=== PATIENT | male | born 1995 | race Caucasian/White ===

== ENCOUNTER → 2016-07-20 | Outpatient (CLI) | payer OTHER ==
[~2016-07-20] MED LIST: CETI10TA84 PO; CMD5 PO; ENOX120I SQ; LVNIS150 SQ; WARF5TAB7 PO; [UNRECOGNIZED DRUG - CODE] SC
--- NOTE | 2016-07-20 10:21 | DIAGNOSTIC IMAGING REPORT ---
LEFT LOWER EXTREMITY VENOUS DOPPLER HISTORY: LT LEG DVT, F/U STUDY COMPARISON STUDY: Left leg venous Doppler 01/07/2016. FINDINGS: There is occlusive thrombus seen within the left peroneal veins, unchanged. There is also occlusive thrombus seen within one of 2 posterior tibial veins. This is new from the prior study. No DVT identified within the left common femoral, superficial femoral, popliteal, anterior tibial veins. IMPRESSION: 1. No change in the left peroneal vein thrombosis. 2. There is now occlusive thrombus seen within one of 2 posterior tibial veins. Electronically signed by: Anatoly Reid M.D. 07/20/2016 10:20 AM Dictated Date/Time: 07/20/2016 10:18 AM
== END | disposition home or self-care (01) ==
LOC: C.ULTR 09:42
PROVIDERS: ATTEND Internal Medicine Hematology & Oncology
DX: I82.402 Acute embolism and thrombosis of unspecified deep veins of left lower extremity (principal)

== ENCOUNTER 2016-08-06 21:24 | Emergency (ER) | payer OTHER ==
[~2016-08-06] VITALS: Ht 180.3 cm; Wt 135.1 kg
[~2016-08-06 21:24] MED LIST changes: -CETI10TA84 PO; -LVNIS150 SQ; -WARF5TAB7 PO; -[UNRECOGNIZED DRUG - CODE] SC
[2016-08-06 21:27] VITALS: TEMP 37; Ht 180.3 cm; Wt 135.1 kg
[2016-08-06] MEDS ORDERED: CETI10TA84 PO (21:44)
[2016-08-06] MEDS ORDERED: [UNRECOGNIZED DRUG - CODE] SC (21:51)
--- NOTE | 2016-08-06 21:59 | EMERGENCY ROOM VISIT NOTE ---
History Report prepared by Julio: Nakita Kendrick Under the Supervision of: Dr. Mj Flores M.D. First contact with patient: 21:29 Chief Complaint: SHORTNESS OF BREATH Stated Complaint: SOB History of Present Illness The patient is a 20 year old male who presents to the Emergency Room with constant back pain starting 40 minutes [employer]. The patient states that the pain feels as if he has knot behind his shoulder blade. The patient states that along with the pain he felt as if his breathing was heavy. The patient states that in January he was diagnosed with a DVT of the left leg and was put on Eliquis for the last 6 months. The patient states that 2 weeks ago he had an examination on his left leg again and 2 additional DVT clots were found. The patient states that he was put on Coumadin which was supposed to start tomorrow and he has been injecting himself with shots of Lovenox for the last 5 days. The patient states that his doctor told him to be seen at the ED if he was having any chest pain, back pain or shortness of breath. The patient denies any diaphoresis or chest pain. The patient states that he has a genetic disposition for blood clots. He denies any kidney disease, heart disease, or diabetes. Source of History: patient Onset: 40 minutes [employer] Position: back Quality: other (knot) Timing: constant Associated Symptoms: No diaphoresis, No chest pain Note: Associated symptoms: heavy breathing Review of Systems See HPI for pertinent positives & negatives. A total of 10 systems reviewed and were otherwise negative. Past Medical & Surgical Medical Problems: (1) DVT (deep venous thrombosis) Family History Patient reports no known family medical history. Social History Smoking Status: Never Smoker Marital Status: single Housing Status: lives with family Occupation Status: student Current/Historical Medications Scheduled Cetirizine (Zyrtec), 10 MG PO DAILY Fondaparinux Sodium (Arixtra), 10 MG SC DAILY Allergies Coded Allergies: No Known Allergies (Unverified , 01/07/16) Physical Exam Vital Signs Date Time Temp Pulse Resp B/P (MAP) Pulse Ox O2 Delivery O2 Flow Rate FiO2 08/06/16 23:22 89 18 137/89 98 Room Air 08/06/16 22:03 97 Room Air 08/06/16 21:27 37.0 103 18 132/73 99 Room Air Physical Exam GENERAL: Patient is in no acute distress. HEENT: No acute trauma, normocephalic atraumatic, mucous membranes moist, no nasal congestion, no scleral icterus. NECK: No stridor, no adenopathy, no meningismus, trachea is midline. LUNGS: Clear to auscultation bilaterally, no wheeze, no rhonchi, breath sounds equal. HEART: Subtle systolic murmur and a mild tachycardia with a regular rhythm. ABDOMEN: Soft, nontender, bowel sounds positive, no hernias, no peritonitis. EXTREMITIES: No cyanosis or edema, full range of motion of all the joints without pain or difficulty, no signs for acute trauma. NEUROLOGIC: Oriented x 3, no acute motor or sensory deficits, no focal weakness. SKIN: No rash, no jaundice, no diaphoresis. Medical Decision & Procedures ER Provider Diagnostic Interpretation: CT results as stated below per my review and radiologist interpretation: Preliminary findings only--See Final Report for Complete Findings: CTA CHEST: No priors There is some artifact with limits evaluation. There are some areas of decreased attenuation in the pulmonary arteries which is felt to be artifactual. No evidence for acute PE allowing for artifact. Atelectasis. Trace pericardial effusion. Splenomegaly, gynecomastia and other incidentals. Radiologist: Francisco Nicholson M.D Study ready at 2307 and initial results transmitted at 2320 Laboratory Results 08/06/16 21:57 08/06/16 21:57 Test 08/06/16 21:57 Red Blood Count 4.96 M/uL (4.7-6.1) Mean Corpuscular Volume 86.7 fL (80-100) Mean Corpuscular Hemoglobin 29.4 pg (25-34) Mean Corpuscular Hemoglobin Concent 34.0 g/dl (32-36) RDW Standard Deviation 40.3 fL (36.4-46.3) RDW Coefficient of Variation 12.7 % (11.5-14.5) Mean Platelet Volume 9.1 fL (7.4-10.4) Prothrombin Time 11.2 SECONDS (9.0-12.0) Prothromb Time International Ratio 1.0 (0.9-1.1) Activated Partial Thromboplast Time 28.2 SECONDS (21.0-31.0) Partial Thromboplastin Ratio 1.1 Anion Gap 8.0 mmol/L (3-11) Est Creatinine Clear Calc Drug Dose 147.8 ml/min Estimated GFR () 109.9 Estimated GFR (Non- 94.8 BUN/Creatinine Ratio 18.9 (10-20) Calcium Level 9.4 mg/dl (8.5-10.1) Laboratory results reviewed by me. ECG Indication: back/shoulder pain Rate (beats per minute): 84 Rhythm: normal sinus Findings: no acute ischemic change, no ectopy ED Course 2129: The patient was evaluated in room B9. A complete history and physical exam was performed. 234: I reevaluated the patient. Discussed results and discharge instructions: He verbalized understanding and agreement. The patient is ready for discharge. Medical Decision The patient is a 20 year old male who presents to the ED with complaints of shortness of breath. Differential diagnoses considered include musculoskeletal pain, pneumonia, pneumothorax, AL and PE. There is no leukocytosis or concerning anemia. No significant electrolyte abnormality or kidney failure. There was no coagulopathy. EKG shows a normal sinus rhythm, no acute ischemia. Chest CT shows some artifact, no obvious PE, no pneumonia. The patient presents with concerns for PE, he is being treated for a DVT. Workup here does not show evidence for an acute pulmonary embolus. The patient was reassured. He is being discharged to continue his anticoagulation as prescribed, he can return for any worsening symptoms. The chest/back pain was likely musculoskeletal-the pain is already gone. Medication Reconciliation: I attest that I have personally reviewed the patient' s current medication list. Blood Pressure Screening: Patient was found to have an elevated blood pressure and was referred to their primary doctor for recheck and further treatment. Impression Primary Impression: Shortness of breath Additional Impression: DVT (deep venous thrombosis) Scribe Attestation The scribe's documentation has been prepared under my direction and personally reviewed by me in its entirety. I confirm that the note above accurately reflects all work, treatment, procedures, and medical decision making performed by me. Departure Information Dispostion Home / Self-Care Referrals Amarilis Garcia C.R.N.P (PCP) Forms HOME CARE DOCUMENTATION FORM, IMPORTANT VISIT INFORMATION Patient Instructions My [facility] Additional Instructions all meds as directed no clot on your scan today as per radiology ECG was ok return for worsening symptoms Problem Qualifiers
[2016-08-06 22:11] LABS: MEAN CELL VOLUME 86.7 fL (80-100); MEAN CORPUSCULAR HEMOGLOBIN 29.4 pg (25-34); MEAN PLATELET VOLUME 9.1 fL (7.4-10.4); PLATELET COUNT 214 K/uL (130-400); RED BLOOD COUNT 4.96 M/uL (4.7-6.1); WHITE BLOOD COUNT 5.69 K/uL (4.8-10.8)
[2016-08-06 22:18] LABS: PARTIAL THROMBOPLASTIN RATIO 1.1; PROTHROMBIN TIME (PATIENT) 11.2 SECONDS (9.0-12.0)
[2016-08-06 22:25] LABS: BUN/CREATININE RATIO 18.9 (10-20); CREATININE 1.1 mg/dl (0.60-1.40); POTASSIUM 3.8 mmol/L (3.5-5.1)
[2016-08-06 22:40] LABS: CALCIUM 9.4 mg/dl (8.5-10.1)
[2016-08-06] MEDS ORDERED: OPTIRAY 320 IV PRN (22:45)
[2016-08-06 23:22] VITALS: BP 137/89; PULSE 89; O2SAT 98
--- NOTE | 2016-08-07 06:42 | DIAGNOSTIC IMAGING REPORT ---
CT ANGIOGRAPHY OF THE CHEST, PULMONARY EMBOLUS PROTOCOL CLINICAL HISTORY: Right shoulder and chest pain. COMPARISON STUDY: No previous studies for comparison. TECHNIQUE: Following IV administration of 101 mL of [id number]-320, helical axial images of the chest were obtained utilizing the pulmonary embolus protocol. Maximal intensity projections and sagittal and coronal reformats were viewed on an independent 3D workstation. IV contrast was administered without complication. CT DOSE: 1465.90 mGy.cm FINDINGS: No pulmonary emboli are identified. There is no evidence of thoracic aortic dissection. Size of the heart is at the upper limits of normal. There is no pericardial effusion. No enlarged thoracic lymph nodes are present. There is no consolidation to suggest pneumonia. Linear and ground glass opacities reflect atelectasis. There is no pneumothorax or pleural effusion. Mild splenomegaly is similar to CT of April 02, 2015. There is gynecomastia. IMPRESSION: 1. No pulmonary emboli identified. 2. No acute intrathoracic findings. Electronically signed by: Darrell Sierra M.D. 08/07/2016 6:40 AM Dictated Date/Time: 08/07/2016 6:36 AM
[2016-08-07] MEDS ORDERED: LVNIS150 SQ (12:28)
[2016-09-13] MEDS ORDERED: WARF5TAB7 PO (11:33)
[2016-10-25] MEDS ORDERED: WARF5TAB7 PO (15:00)
== END 2016-08-06 23:54 | disposition home or self-care (01) ==
LOC: C.EDB 21:25
DX: R06.02 Shortness of breath (principal); I82.4Z2 Acute embolism and thrombosis of unspecified deep veins of left distal lower extremity; Z79.01 Long term (current) use of anticoagulants; Z79.899 Other long term (current) drug therapy

== ENCOUNTER → 2016-08-16 | Outpatient (CLI) | payer OTHER ==
[~2016-08-16] MED LIST changes: +CETI10TA84 PO; -CMD5 PO; -ENOX120I SQ; +LVNIS150 SQ; +WARF5TAB7 PO
[2016-08-16 12:15] LABS: HEMATOCRIT 43.1 % (42-52); MEAN CELL VOLUME 86.4 fL (80-100); MEAN CORPUSCULAR HEMOGLOBIN 29.9 pg (25-34); MEAN CORPUSCULAR HGB CONC 34.6 g/dl (32-36); MEAN PLATELET VOLUME 9.5 fL (7.4-10.4); PLATELET COUNT 224 K/uL (130-400); RED BLOOD COUNT 4.99 M/uL (4.7-6.1); WHITE BLOOD COUNT 4.98 K/uL (4.8-10.8)
== END | disposition home or self-care (01) ==
LOC: C.LAB 10:24
PROVIDERS: ATTEND Pathology Blood Banking & Transfusion Medicine
DX: Z51.81 Encounter for therapeutic drug level monitoring (principal); Z79.01 Long term (current) use of anticoagulants

== ENCOUNTER → 2017-01-08 | Outpatient (CLI) | payer OTHER ==
[~2017-01-08] MED LIST changes: -LVNIS150 SQ
--- NOTE | 2017-01-08 15:30 | DIAGNOSTIC IMAGING REPORT ---
ULTRASOUND BILATERAL LOWER EXTREMITY VENOUS CLINICAL HISTORY: Left lower extremity deep venous thrombosis.. COMPARISON STUDY: Left lower extremity venous ultrasound dated 07/20/2016. TECHNIQUE: Real-time, grayscale, and color Doppler sonography of the deep veins of the right and left lower extremity was performed from the inguinal crease to the calf. Compression and augmentation were utilized. FINDINGS: Right lower extremity: There is no sonographic evidence of deep venous thrombosis identified in the right lower extremity. The common femoral, superficial femoral, and popliteal veins are patent and normally compressible. The greater saphenous vein and the profunda femoris vein at the junction with the common femoral vein are clear. The visualized calf veins are patent. Left lower extremity: Deep venous thrombosis within the left posterior tibial and peroneal veins is similar to previous. No above knee deep venous thrombosis is identified in the left lower extremity. The common femoral, superficial femoral, and popliteal veins are patent and normally compressible. The greater saphenous vein and the profunda femoris vein at the junction with the common femoral vein are clear. IMPRESSION: 1. Deep venous thrombosis in the left calf is similar to prior studies. 2. No above knee deep venous thrombosis is seen in the left lower extremity. 3. There is no sonographic evidence of deep venous thrombosis identified in the right lower extremity. Electronically signed by: Mj Cabello M.D. 01/08/2017 3:29 PM Dictated Date/Time: 01/08/2017 3:26 PM
== END | disposition home or self-care (01) ==
LOC: C.ULTR 14:40
PROVIDERS: ATTEND Internal Medicine Hematology & Oncology
DX: I82.402 Acute embolism and thrombosis of unspecified deep veins of left lower extremity (principal)